=== PATIENT | male | born 1980 | race Hispanic/Latino ===

== ENCOUNTER 2017-10-12 11:59 | Observation (INO) | payer BC ==
[2017-10-12] MEDS ORDERED: Nitroglycerin 0.4 MG TAB (25 Tab Bottle) ONE (12:39)
[2017-10-12 12:55] LABS: #Basophils 0.1 thou/uL (0.0-0.2); #Eosinphils 0.3 thou/uL (0.0-0.7); #Lymphocytes 2.1 thou/uL (1.20-3.40); #Monocytes 0.6 thou/uL (0.11-0.59); #Neutrophils 5.6 thou/uL (1.40-6.50); %Basophils 1.1 % (0.0-1.0); %Eosinophils 3.4 % (0.0-10.0); %Lymphocytes 24.7 % (21.0-51.0); %Monocytes 6.6 % (0.0-10.0); %Neutrophils 64.3 % (42.0-75.0); Hemoglobin 15.5 g/dL (14.0-18.0); Mean Corpuscular Hemoglobin 30.6 pg (27.0-31.0); Mean Corpuscular Volume 87.5 fl (80.0-94.0); Mean Platelet Volume 7.6 fL (7.4-10.4); Platelet Count 227 thou/uL (130-400); RBC Distribution Width 11.8 % (11.5-14.5); Red Blood Cell (RBC) Count 5.06 mill/uL (4.70-6.10); White Blood Cell (WBC) Count 8.7 thou/uL (4.8-10.8)
[2017-10-12 13:28] LABS: CKMB 3.1 ng/mL (0-6.6); Troponin I 0.029 ng/mL (< 0.028)
[2017-10-12 13:31] LABS: ALT (SGPT) 55 U/L (8-55); AST (SGOT) 38 U/L (5-34); Albumin 4.5 g/dL (3.5-5.0); Alkaline Phosphatase 102 U/L (40-150); Anion Gap 12 mmol/L (10-20); BUN (Urea Nitrogen) 12 mg/dL (8.9-20.6); Bilirubin, Total 0.5 mg/dL (0.2-1.2); CK (CPK) 282 U/L (30-200); Calc. Creatinine Clearance 0 mL/min (70-130); Calcium 9.4 mg/dL (7.8-10.44); Carbon Dioxide 29 mmol/L (22-29); Chloride 104 mmol/L (98-107); Estimated GFR-MDRD Greater than 90; Globulin 2.8 g/dL (2.4-3.5); Glucose 115 mg/dL (70-105); Lipase 26 U/L (8-78); Potassium 3.5 mmol/L (3.5-5.1); Protein, Total 7.3 g/dL (6.0-8.3); Sodium 141 mmol/L (136-145)
--- NOTE | 2017-10-12 13:57 | RAD ---
PA AND LATERAL CHEST: HISTORY: Back pain. FINDINGS: Heart size and mediastinum are within normal limits. The lungs are clear of infiltrates. No signifi cant bony findings. IMPRESSION: No active intrathoracic disease. POS: [facility]
[2017-10-12] MEDS ORDERED: Ondansetron ODT 4 MG TAB SL PRN (15:08)
[2017-10-12] MEDS ORDERED: Ondansetron HCl/PF 4 MG/2 ML Vial IVP PRN (15:08)
[2017-10-12] MEDS ORDERED: Iopamidol 370 76% 100 ML VIAL ONE (15:09)
[2017-10-12 15:22] VITALS: BMI 32.3
[2017-10-12] MEDS: Sodium Chloride 0.9% 1,000 ML IV SCH (15:42)
[2017-10-12 16:01] LABS: Troponin I 0.025 ng/mL (< 0.028)
--- NOTE | 2017-10-12 16:16 | CT ---
CT ANGIO OF CHEST AND ABDOMEN PERFORMED WITH INTRAVENOUS CONTRAST ENHANCEMENT WITH 3D RECONSTRUCTIONS : 10/12/17 HISTORY: Chest pain that radiates to the back and cough. This examination was done per the aortic dissection protocol. The lungs are clear of infiltrative process. No pulmonary nodules or pleural effusions. There is no significant mediastinal or hilar lymphadenopathy. There is fairly good pulmonary artery o pacification. No CT evidence for any proximal pulmonary embolus. The thoracic aorta is normal in abigail patricia and there is no signs of dissection. CT ANGIO OF ABDOMEN PERFORMED WITH CONTRAST ENHANCEMENT: Liver shows suggestion of some fatty change. Spleen, pancreas and gallbladder regions appear unremark able. Right and left adrenal gland and right and left kidneys are normal in sizes. Appendix is retrocecal i n location and normal in appearance. Abdominal aorta is normal in caliber. No signs of dissection. No areas of thrombus. Review of osseous structures show arthritic changes of the lower lumbar spine. IMPRESSION: No evidence of aortic aneurysm or dissection. POS: [facility]
[2017-10-12] MEDS ORDERED: Labetalol HCl 100 MG/20 ML VIAL SLOW IVP PRN (16:22)
[2017-10-12] MEDS ORDERED: Labetalol HCl 100 MG/20 ML VIAL SLOW IVP SCH (16:30)
[2017-10-12 17:13] LABS: Cardiac Risk 4.6 (Less than 4.5)
[2017-10-12 19:39] LABS: Troponin I 0.024 ng/mL (< 0.028)
--- NOTE | 2017-10-12 23:03 | PDOC.FPRHP ---
- History of Present Illness Chief Complaint: Chest Pain History of Present Illness: . - Allergies/Adverse Reactions Allergies Allergy/AdvReac Type Severity Reaction Status Date / Time No Known Drug Allergies Allergy Verified 10/12/17 18:10 - Home Medications Medication Instructions Recorded Confirmed Type No Known [No Known] 10/12/17 10/12/17 History - History PMHx: PSHx: FHx: Social: - Vital signs BP: [] HR: [] RR: [] Tmax: [] Pox: []% on [] Wt: [] FMR H&P: Results - Labs Result Diagrams: 10/12/17 12:50 10/12/17 12:50 Lab results: WBC 8.7 thou/uL (4.8-10.8) 10/12/17 12:50 Hgb 15.5 g/dL (14.0-18.0) 10/12/17 12:50 Hct 44.3 % (42.0-52.0) 10/12/17 12:50 MCV 87.5 fl (80.0-94.0) 10/12/17 12:50 Plt Count 227 thou/uL (130-400) 10/12/17 12:50 Neutrophils % 64.3 % (42.0-75.0) 10/12/17 12:50 Sodium 141 mmol/L (136-145) 10/12/17 12:50 Potassium 3.5 mmol/L (3.5-5.1) 10/12/17 12:50 Chloride 104 mmol/L (98-107) 10/12/17 12:50 Carbon Dioxide 29 mmol/L (22-29) 10/12/17 12:50 BUN 12 mg/dL (8.9-20.6) 10/12/17 12:50 Creatinine 0.79 mg/dL (0.6-1.3) 10/12/17 12:50 Glucose 115 mg/dL (70-105) H 10/12/17 12:50 Calcium 9.4 mg/dL (7.8-10.44) 10/12/17 12:50 Total Bilirubin 0.5 mg/dL (0.2-1.2) 10/12/17 12:50 AST 38 U/L (5-34) H 10/12/17 12:50 ALT 55 U/L (8-55) 10/12/17 12:50 Alkaline Phosphatase 102 U/L (40-150) 10/12/17 12:50 Creatine Kinase 282 U/L (30-200) H 10/12/17 12:50 CK-MB (CK-2) 3.1 ng/mL (0-6.6) 10/12/17 12:50 B-Natriuretic Peptide 28.3 pg/mL (0-100) 10/12/17 12:50 Serum Total Protein 7.3 g/dL (6.0-8.3) 10/12/17 12:50 Albumin 4.5 g/dL (3.5-5.0) 10/12/17 12:50 Lipase 26 U/L (8-78) 10/12/17 12:50 FMR H&P: Upper Level - Plan Date/Time: 10/12/17 3903 I, [], have evaluated this patient and agree with findings/plan as outlined by intern retail resident. Pertinent changes/additions are listed here.
--- NOTE | 2017-10-12 23:21 | PDOC.FPRHP ---
- History of Present Illness Chief Complaint: Chest pain History of Present Illness: 36M without past medical history presents for 3 days of dull, aching chest pain. It is substernal, radiating to the back. Exacerbated by movement but not more so by exerting himself. He rates it as a 10/10 pain and has not had any relief from it. It has been slowly worsening. In ER was started with nitroglycerin, 1L NS and 324 mg aspirin. When seen on floor, pain mildly relieved. - Allergies/Adverse Reactions Allergies Allergy/AdvReac Type Severity Reaction Status Date / Time No Known Drug Allergies Allergy Verified 10/12/17 18:10 - Home Medications Medication Instructions Recorded Confirmed Type No Known [No Known] 10/12/17 10/12/17 History - History PMHx:Denies past medical issue. PSHx: Denies past surgery FHx: Denies ME in family. Social: Binge drinking on weekend, but otherwise denies tobacco or drug use. - Review of Systems General: reports: other (Endorse diaphoresis). denies: fever/chills Eyes: denies: eye pain, vision changes ENT: denies: rhinorrhea Respiratory: denies: cough, shortness of breath Cardiovascular: reports: chest pain. denies: palpitation Gastrointestinal: reports: nausea Genitourinary: denies: discharge Skin: denies: rashes Musculoskeletal: denies: pain Neurological: reports: other (Denies headache) - Vital signs BP: [187/88] HR: [88] RR: [18] Tmax: [98.2] Pox: [88]% on [RA] Wt: [88kg] - Physical Exam Constitutional: awake, alert and oriented HEENT: normocephalic and atraumatic, conjunctiva clear, no scleral icterus, grossly normal vision Neck: supple, trachea midline Chest: no-tender to palpation -Chest: Pain reproducible with movement Heart: RRR, normal S1/S2 Lungs: CTAB, no respiratory distress Abdomen: soft, non-tender, no masses/distention Neurological: no focal deficit, normal sensation Skin: no rash/lesions Psychiatric: normal mood and affect FMR H&P: Results - Labs Result Diagrams: 10/13/17 04:11 10/13/17 04:11 Lab results: WBC 8.7 thou/uL (4.8-10.8) 10/12/17 12:50 Hgb 15.5 g/dL (14.0-18.0) 10/12/17 12:50 Hct 44.3 % (42.0-52.0) 10/12/17 12:50 MCV 87.5 fl (80.0-94.0) 10/12/17 12:50 Plt Count 227 thou/uL (130-400) 10/12/17 12:50 Neutrophils % 64.3 % (42.0-75.0) 10/12/17 12:50 Sodium 141 mmol/L (136-145) 10/12/17 12:50 Potassium 3.5 mmol/L (3.5-5.1) 10/12/17 12:50 Chloride 104 mmol/L (98-107) 10/12/17 12:50 Carbon Dioxide 29 mmol/L (22-29) 10/12/17 12:50 BUN 12 mg/dL (8.9-20.6) 10/12/17 12:50 Creatinine 0.79 mg/dL (0.6-1.3) 10/12/17 12:50 Glucose 115 mg/dL (70-105) H 10/12/17 12:50 Calcium 9.4 mg/dL (7.8-10.44) 10/12/17 12:50 Total Bilirubin 0.5 mg/dL (0.2-1.2) 10/12/17 12:50 AST 38 U/L (5-34) H 10/12/17 12:50 ALT 55 U/L (8-55) 10/12/17 12:50 Alkaline Phosphatase 102 U/L (40-150) 10/12/17 12:50 Creatine Kinase 282 U/L (30-200) H 10/12/17 12:50 CK-MB (CK-2) 3.1 ng/mL (0-6.6) 10/12/17 12:50 B-Natriuretic Peptide 28.3 pg/mL (0-100) 10/12/17 12:50 Serum Total Protein 7.3 g/dL (6.0-8.3) 10/12/17 12:50 Albumin 4.5 g/dL (3.5-5.0) 10/12/17 12:50 Lipase 26 U/L (8-78) 10/12/17 12:50 - EKG Interpretation EKG: Reviewed by me. Normal sinus rhythm without obvious ST changes FMR H&P: A/P - Problem List (1) Atypical chest pain Current Visit: Yes Status: Acute Priority: High Code(s): R07.89 - OTHER CHEST PAIN Assessment and Plan: Atypical chest pain lasting over 3 days and exacerbated with movement. Consider costochondritis as the most likely cause, but can not rule out aortic dissection based on pain radiation. May also be unstable angina. Plan is to obtain CT for r/o of dissection. Medical treatment with labetalol to lower BP while awaiting CT. Once result returns for CT, will rule out other causes. Heart score 1 for mildly suspicious story. Admit to Tele. (2) Hypertensive urgency Current Visit: Yes Status: Acute Priority: High Code(s): I16.0 - HYPERTENSIVE URGENCY Assessment and Plan: May be cause of chest discomfort. Plan to lower BP with labetolol as BP an worsen a possible dissection. FMR H&P: Upper Level - Plan Date/Time: 10/12/17 9490 I, [], have evaluated this patient and agree with findings/plan as outlined by hospitality internship resident. Pertinent changes/additions are listed here. Attending Addendum - Attending Addendum Date/Time: 10/12/17 2276 I personally evaluated the patient and discussed the management with Dr. Adams I agree with the History, Examination, Assessment and Plan documented above with any addition or exceptions noted below. Chest pain rule out. Make sure no dissection present. Treat HTN. Dispo based on CT results. Oanh
[2017-10-12] MEDS: Nitroglycerin 0.4 MG TAB (25 Tab Bottle) PO PRN ×3 (23:25→23:35)
[2017-10-12] MEDS: Acetaminophen 325 MG TAB PO PRN (23:37)
[2017-10-13] MEDS: Sodium Chloride 0.9% 1,000 ML IV SCH (01:52)
[2017-10-13 05:07] LABS: #Basophils 0.1 thou/uL (0.0-0.2); #Eosinphils 1.1 thou/uL (0.0-0.7); #Lymphocytes 3.2 thou/uL (1.20-3.40); #Monocytes 0.7 thou/uL (0.11-0.59); %Basophils 0.7 % (0.0-1.0); %Eosinophils 12.2 % (0.0-10.0); %Monocytes 7.5 % (0.0-10.0); %Neutrophils 44.5 % (42.0-75.0); Hemoglobin 15.3 g/dL (14.0-18.0); Mean Corpuscular HGB CONC 34.4 g/dL (32.0-36.0); Mean Corpuscular Hemoglobin 30.3 pg (27.0-31.0); Mean Corpuscular Volume 88.1 fl (80.0-94.0); Mean Platelet Volume 7.9 fL (7.4-10.4); Platelet Count 231 thou/uL (130-400); RBC Distribution Width 11.8 % (11.5-14.5); Red Blood Cell (RBC) Count 5.04 mill/uL (4.70-6.10)
[2017-10-13 05:21] LABS: Anion Gap 12 mmol/L (10-20); BUN (Urea Nitrogen) 10 mg/dL (8.9-20.6); Calc. Creatinine Clearance 169 mL/min (70-130); Carbon Dioxide 28 mmol/L (22-29); Chloride 104 mmol/L (98-107); Estimated GFR-MDRD Greater than 90; Glucose 96 mg/dL (70-105); Potassium 3.7 mmol/L (3.5-5.1); Sodium 140 mmol/L (136-145)
--- NOTE | 2017-10-13 06:20 | PDOC.FM ---
- Subjective Subjective: Patient is resting comfortably in bed this morning. He still complains of constant chest pain of primarily the R chest that is reproducible with palpation and worsens with arm ROM and twisting. He reports FHx of hypertension in mother. He also has been told before that his blood pressure is elevated. He has never been on meds for this. No n/v, diaphoresis. Pain radiates to the back. - Objective MAR Reviewed: Yes Vital Signs & Weight: Vital Signs (12 hours) Temp Pulse Resp BP BP Pulse Ox 10/13/17 02:54 98 F 76 18 141/97 H 97 10/13/17 00:20 98.0 F 74 20 158/102 H 97 10/12/17 23:40 68 140/85 10/12/17 23:35 67 153/89 H 10/12/17 23:30 68 150/95 H 10/12/17 23:25 73 163/100 H 10/12/17 21:05 98.8 F 76 18 10/12/17 19:40 98.8 F 76 18 176/108 H 97 Weight Weight 88.2 kg I&O: 10/11/17 10/12/17 10/13/17 06:59 06:59 06:59 Intake Total 600 Balance 600 Result Diagrams: 10/13/17 04:11 10/13/17 04:11 <Twyla Salter - Last Filed: 10/13/17 13:21> - Objective Vital Signs & Weight: Vital Signs (12 hours) Temp Pulse Resp BP Pulse Ox 10/13/17 20:47 164/94 H 10/13/17 19:25 98 F 78 16 176/107 H 97 10/13/17 16:05 98.8 F 66 12 187/106 H 98 10/13/17 10:55 97.9 F 89 12 141/67 H 98 Weight Weight 88.2 kg I&O: 10/12/17 10/13/17 10/14/17 06:59 06:59 06:59 Intake Total 1464 720 Balance 1464 720 Result Diagrams: 10/13/17 04:11 10/13/17 04:11 <Sharon Miller - Last Filed: 10/13/17 20:52> Phys Exam - Physical Examination Constitutional: NAD Respiratory: no wheezing, no rales, clear to auscultation bilateral Cardiovascular: RRR, no significant murmur ttp along R chest and back normal ROM. Neurological: non-focal, moves all 4 limbs Psychiatric: A&O x 3 Skin: cap refill <2 seconds <Twyla Salter - Last Filed: 10/13/17 13:21> Dx/Plan (1) Atypical chest pain Code(s): R07.89 - OTHER CHEST PAIN Status: Acute (2) HTN (hypertension) Code(s): I10 - ESSENTIAL (PRIMARY) HYPERTENSION Status: Acute (3) Hypertensive urgency Code(s): I16.0 - HYPERTENSIVE URGENCY Status: Resolved - Plan Plan: Atypical Chest Pain - Likely costochondritis with hx of sx. Ruled out dissection with neg CT. Will give Flexeril if stress negative for pain management of costochondritis. - Will rule out unstable angina with exercise stress today. Not likely with HEART 1 - Trop neg x3 - CXR wnl - Risk stratify: - FLP with elevated cholesterol. ASCVD risk 1.7%, will have dietitian talk to the patient about diet modifications for hyperlipidemia. - TSH wnl Hypertensive Urgency - resolved with labetalol prn, but continues to be hypertensive - Start lisinopril 10mg daily and will need good outpatient f/u. <Twyla Salter - Last Filed: 10/13/17 13:21> Attending Addendum - Attending Addendum Date/Time: 10/13/172051 I personally evaluated the patient and discussed the management with Dr. Salter. I agree with the History, Examination, Assessment and Plan documented above with any addition or exceptions noted below. The patient has chest pain with deep breaths and palpation of chest wall. Will have stress test. If negative, likely treat with nsaids. <Sharon Miller - Last Filed: 10/13/17 20:52>
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
[2017-10-13] MEDS: Lisinopril 10 MG TAB PO SCH (08:23)
[2017-10-13] MEDS: Acetaminophen 325 MG TAB PO PRN (08:23)
[2017-10-13] MEDS ORDERED: traMADol HCl 50 MG TAB PO SCH (12:15)
[2017-10-13] MEDS ORDERED: Ketorolac Tromethamine 30 MG/ML VIAL IVP SCH (13:45)
[2017-10-13] MEDS ORDERED: Colchicine 0.6 MG TAB PO SCH ×2 (13:45→21:00)
[2017-10-13] MEDS ORDERED: Regadenoson 0.4 MG/5 ML SYRINGE ONE (14:13)
--- NOTE | 2017-10-13 16:10 | NM ---
CARDIAC SPECT: CLINICAL HISTORY: 36-year-old male with chest pain. TECHNIQUE: A myocardial perfusion scan was performed using the single isotope one day protocol with technetium-9 9m sestamibi. 9 mCi were injected intravenously for the rest exam followed by 27 mCi for the stress e xam. Pharmacologic stress with Lexiscan was monitored and interpreted by Dr. Oden. FINDINGS: Homogeneous tracer distribution is seen in the myocardial segments on stress and rest images without fixed or reversible defects. GATED SPECT LVEF: 48%. WALL MOTION EXAM: No significant wall motion abnormalities are seen. IMPRESSION: No evidence of reversible ischemia. POS: [facility]
[2017-10-13] MEDS ORDERED: Calcium Carbonate 500 MG ChewTAB PO PRN (17:09)
[2017-10-13] MEDS ORDERED: Morphine 4 MG/ML VIAL SLOW IVP PRN (17:12)
[2017-10-13] MEDS ORDERED: Pantoprazole 40 MG GRANULES PACKET PO SCH (17:15)
[2017-10-13] MEDS: Ketorolac Tromethamine 30 MG/ML VIAL IVP SCH (18:58)
--- NOTE | 2017-10-13 18:59 | CON ---
DATE OF CONSULTATION: 10/13/2017 REASON FOR CONSULTATION: Chest pain. HISTORY OF PRESENT ILLNESS: Mr. Breaux is a gentleman, 36 years old, admitted with severe chest mark n. The patient has been going on for several days. The patient's pain was worse when took a deep br eath, worse when he laid down flat, better when he sat up. He also had some reproducible pain in the right side of his chest as well. He had no substernal pain typical of angina. PAST MEDICAL HISTORY: Negative for any cardiac problems. Negative for smoking. Otherwise, he has b een active and healthy. PHYSICAL EXAMINATION: VITAL SIGNS: It was noted on examination, blood pressure initially was very high 173/111, pulse 66. HEENT: Eyes, sclerae nonicteric. Mouth, mucous membranes moist. NECK: Supple, no lymphadenopathy. LUNGS: Clear, no wheezing, rales or rhonchi. CARDIAC: Normal S1, normal S2. I do not hear a murmur, rub or gallop. ABDOMEN: Soft, nontender. EXTREMITIES: Warm, dry, no clubbing, cyanosis or edema. His pain is reproduced with palpating some of the costochondral junctions on the right. Stress test was negative for any ischemia. The echocardiogram showed normal left ventricular functio n 60-65%. The nuclear study showed no ischemia. The ejection fraction was estimated at lower, but t he echo looked back in normal ejection fraction. EKG looks like some early repolarization versus pos sibly some pericarditis, some mild EKG changes V1, V2, V3, V4, had very slight ST elevation with some concave up motion. The followup EKG was little more normal. ASSESSMENT: Chest pain, pericarditis, it improved dramatically with Toradol and colchicine. PLAN: 1. Give him anti-inflammatories overnight. 2. Colchicine 0.6 mg twice a day for a month. 3. Agree with JOSE ENRIQUE inhibitor for hypertension.
[2017-10-14] MEDS: Ketorolac Tromethamine 30 MG/ML VIAL IVP SCH ×2 (00:50→06:08)
--- NOTE | 2017-10-14 06:58 | PDOC.FM ---
- Subjective Subjective: Patient reports pain much improved since yesterday. It appears he has pericarditis and colchicine and toradol have proven to be very successful in treating this. overnight his BP continues to be elevated but otherwise no acute events. - Objective MAR Reviewed: Yes Vital Signs & Weight: Vital Signs (12 hours) Temp Pulse Resp BP BP Pulse Ox 10/14/17 04:13 97.5 F L 80 18 137/86 97 10/13/17 23:41 98.3 F 79 16 153/100 H 97 10/13/17 20:47 164/94 H 10/13/17 20:00 98 F 78 16 10/13/17 19:25 98 F 78 16 176/107 H 97 Weight Weight 88.2 kg I&O: 10/12/17 10/13/17 10/14/17 06:59 06:59 06:59 Intake Total 1464 1210 Balance 1464 1210 Result Diagrams: 10/13/17 04:11 10/13/17 04:11 <Twyla Salter - Last Filed: 10/14/17 11:26> - Objective Vital Signs & Weight: Vital Signs (12 hours) Temp Pulse Resp BP BP Pulse Ox 10/14/17 13:50 74 16 154/95 H 97 10/14/17 12:15 153/99 H 10/14/17 11:50 97.6 F 76 16 164/101 H 96 10/14/17 08:04 161/104 H 10/14/17 08:00 97.9 F 80 16 161/104 H 98 Weight Weight 88.2 kg I&O: 10/13/17 10/14/17 10/15/17 06:59 06:59 06:59 Intake Total 1464 1210 240 Balance 1464 1210 240 Result Diagrams: 10/13/17 04:11 10/13/17 04:11 <Sharon Miller - Last Filed: 10/14/17 19:45> Phys Exam - Physical Examination Constitutional: NAD Respiratory: no wheezing, no rales, clear to auscultation bilateral Cardiovascular: RRR, no significant murmur, no rub chest is nontender Gastrointestinal: soft Musculoskeletal: no edema, pulses present Neurological: moves all 4 limbs Psychiatric: normal affect, A&O x 3 <Twyla Salter - Last Filed: 10/14/17 11:26> Dx/Plan (1) Pericarditis Code(s): I31.9 - DISEASE OF PERICARDIUM, UNSPECIFIED Status: Acute (2) Costochondritis, acute Code(s): M94.0 - CHONDROCOSTAL JUNCTION SYNDROME [TIETZE] Status: Acute (3) Atypical chest pain Code(s): R07.89 - OTHER CHEST PAIN Status: Acute (4) HTN (hypertension) Code(s): I10 - ESSENTIAL (PRIMARY) HYPERTENSION Status: Acute (5) Hypertensive urgency Code(s): I16.0 - HYPERTENSIVE URGENCY Status: Resolved - Plan Plan: Atypical CP 2/2 Costochondritis and Pericarditis - stress negative with EF 45% - Echo with EF 60-65% - sx consistent with pericarditis and improved with colchicine and toradol - d/c home today HTN - initially presented in hypertensive urgency - BP still somewhat elevated, but just started Lisinopril yesterday - d/c home with Lisinopril 10mg daily with f/u in our clinic to adjust as needed Dispo: d/c home today. <Twyla Salter - Last Filed: 10/14/17 11:26> Attending Addendum - Attending Addendum Date/Time: 10/14/171944 I personally evaluated the patient and discussed the management with Dr. Salter. I agree with the History, Examination, Assessment and Plan documented above with any addition or exceptions noted below. The patient is feeling better with colchicine and nsaids for pericarditis. Pt will be discharged home. <Sharon Miller - Last Filed: 10/14/17 19:45>
[2017-10-14] MEDS: Lisinopril 10 MG TAB PO SCH (08:04)
[2017-10-14] MEDS ORDERED: Colchicine 0.6 MG TAB PO SCH (09:00)
[2017-10-14 11:51] VITALS: TEMP 97.6
[2017-10-14] MEDS ORDERED: Hydrochlorothiazide 25 MG TAB PO SCH (12:45)
[2017-10-14] MEDS: Acetaminophen 325 MG TAB PO PRN (12:56)
[2017-10-14 13:56] VITALS: BP 154/95
== END 2017-10-14 14:12 | disposition home or self-care (01) ==
LOC: ERS 11:59 → 2SW 14:51
PROVIDERS: ADMIT Family Medicine; ATTEND Family Medicine
DX: I31.9 Disease of pericardium, unspecified (principal); I16.0 Hypertensive urgency; I10 Essential (primary) hypertension; M94.0 Chondrocostal junction syndrome [Tietze]
CPT/HCPCS: 36415; 71046; 71275; 78452; 80048; 80053; 80061; 82553; 83690; 83880; 84484; 85025; 85379; 93005; 93010; 93017; 93306; 96360; 96361; 96374; 96375; 96376; A9500; G0378; J1885; J2785

== ENCOUNTER 2018-01-04 10:10 | Emergency (ER) | payer BC ==
[2018-01-04 10:58] LABS: #Basophils 0.1 thou/uL (0.0-0.2); #Eosinphils 0.6 thou/uL (0.0-0.7); #Lymphocytes 2.5 thou/uL (1.20-3.40); #Monocytes 0.8 thou/uL (0.11-0.59); #Neutrophils 5.2 thou/uL (1.40-6.50); %Basophils 0.6 % (0.0-1.0); %Eosinophils 6.1 % (0.0-10.0); %Lymphocytes 27.6 % (21.0-51.0); %Monocytes 8.5 % (0.0-10.0); %Neutrophils 57.1 % (42.0-75.0); Hemoglobin 15.9 g/dL (14.0-18.0); Mean Corpuscular HGB CONC 36.1 g/dL (32.0-36.0); Mean Corpuscular Hemoglobin 31.6 pg (27.0-31.0); Mean Corpuscular Volume 87.4 fL (78.0-98.0); Mean Platelet Volume 8.3 fL (7.4-10.4); Platelet Count 221 thou/uL (130-400); RBC Distribution Width 11.6 % (11.5-14.5); Red Blood Cell (RBC) Count 5.03 mill/uL (4.70-6.10); White Blood Cell (WBC) Count 9.1 thou/uL (4.8-10.8)
[2018-01-04 11:21] LABS: ALT (SGPT) 94 U/L (8-55); AST (SGOT) 53 U/L (5-34); Albumin 4.6 g/dL (3.5-5.0); Alkaline Phosphatase 92 U/L (40-150); Anion Gap 13 mmol/L (10-20); BUN (Urea Nitrogen) 12 mg/dL (8.9-20.6); Bilirubin, Total 0.5 mg/dL (0.2-1.2); CK (CPK) 276 U/L (30-200); Calc. Creatinine Clearance 0 mL/min (70-130); Calcium 9.2 mg/dL (7.8-10.44); Carbon Dioxide 26 mmol/L (22-29); Chloride 105 mmol/L (98-107); Estimated GFR-MDRD Greater than 90; Glucose 114 mg/dL (70-105); Potassium 3.7 mmol/L (3.5-5.1); Protein, Total 7.6 g/dL (6.0-8.3); Sodium 140 mmol/L (136-145)
[2018-01-04 11:26] LABS: CKMB 3.7 ng/mL (0-6.6); Troponin I 0.011 ng/mL (< 0.028)
--- NOTE | 2018-01-05 15:15 | EKG ---
Test Reason : DIZZINESS,HTN Blood Pressure : / mmHG Vent. Rate : 082 BPM Atrial Rate : 082 BPM P-R Int : 146 ms QRS Dur : 076 ms QT Int : 392 ms P-R-T Axes : 041 002 029 degrees QTc Int : 457 ms Normal sinus rhythm Normal ECG Confirmed by SAMIRA MELLO DO ([id number]), script editor TANNER SIERRA ([id number]) on 01/05/2018 3:14:36 PM Referred By: Confirmed By:SAMIRA MELLO DO
== END 2018-01-04 13:41 | disposition home or self-care (01) ==
LOC: ERS 10:10
DX: I10 Essential (primary) hypertension (principal); E78.5 Hyperlipidemia, unspecified; Z79.899 Other long term (current) drug therapy
CPT/HCPCS: 36415; 80053; 82553; 84484; 85025; 93005